=== PATIENT | female | born 1940 | race Caucasian/White ===

== ENCOUNTER → 2016-10-07 | Outpatient (CLI) | payer MEDICARE, OTHER ==
[~2016-10-07] MED LIST: AMARYL2 MG PO; ASPIRIN81 M2; ASPIRIN81 MG PO; CRESTOR; CRESTOR5 MG PO; HYZAAR PO; METFORMIN; METFORMIN HCL500 M1 PO; NORFLEX100 M1 PO; NORVASC; NORVASC10 MG PO
--- NOTE | ~2016-10-07 | XA30 ---
[facility] A Service of [facility] & [facility] RADIOLOGY TEXT RESULTS PATIENT: BREANA CHAMBERS LOCATION: [facility] : 39 UNIT #: [id number] AGE: [address]: Aldo Renee MD SEX: F ORDER DR: [id number] [facility] [address]. [place], [place] [address] [id number] O MR#: [id number] #: [id number] NAME: BREANA CHAMBERS. : 1940 SEX: F STUDY DATE/TIME: 10/07/2016 11:14 UNIT: [facility] ROOM: STUDY DESCRIPTION: XA Arthrocentesis Major Joint Attending Physician: Aldo Renee M.D. Ordering Physician: Aldo Renee M.D. Primary Care Physician: Demarcus Lara Jr., M.D. MEDICAL IMAGING REPORT This report is preliminary unless electronic signature is present EXAM Bilateral fluoroscopically guided hip joint injections with steroid and a local anesthetic INDICATIONS Bilateral hip pain. Fluoro time is 0.9 minutes. Reference air kerma 31 mGy. Risks, benefits and alternatives of the procedure discussed with the patient informed consent was obtained. In the procedure room a timeout was performed confirming correct patient and procedure. All elements of maximum sterile-barrier technique utilized according to guidelines appropriate for the procedure. TECHNIQUE/FINDINGS Skin overlying both hips was prepped and draped in the usual sterile fashion. 1% lidocaine utilized to anesthetize the skin and underlying subcutaneous tissues. Next under fluoroscopic guidance a 22 gauge needle was advanced into the left hip joint space. It was then injected with 2 mL of 40 mg/mL of Depo-Medrol followed by 3 mL of Bupivacaine. Needle was removed and a sterile dressing was applied. Next a 22-gauge needle was advanced into the right hip joint space under fluoroscopic guidance. This was then injected with 2 mL of 40 mg/mL Depo-Medrol followed by 3 mL of Bupivacaine. Needle was removed and a sterile dressing was applied. There were no immediate complications. Spot images were taken of both hips. Patient tolerated procedure well without immediate complication. Preprocedure pain for both hips was 10. Postprocedure pain for both hips was 4. IMPRESSION Technically successful bilateral hip injections with steroid and local anesthetic STS. [facility] A Service of [facility] RADIOLOGY TEXT RESULTS PATIENT: BREANA CHAMBERS LOCATION: [facility] : 39 UNIT #: [id number] AGE: [address]: Aldo Renee MD SEX: F ORDER DR: Dictated by... Erwin Purdy M.D. THIS IS AN ELECTRONICALLY VERIFIED REPORT Erwin Purdy M.D. at 10/08/2016 9:32 AM DEANNA/rakesh TD: 10/07/2016 17:23 JOB #: [id number] MEDICAL IMAGING REPORT Page 1 of 1 COPY
== END | disposition home or self-care (01) ==
LOC: CIVR 10:43
PROC: 3E0U33Z Introduction of Anti-inflammatory into Joints, Percutaneous Approach (ICD-10-PCS; principal; 2016-10-07)
PROC: 3E0U3BZ Introduction of Anesthetic Agent into Joints, Percutaneous Approach (ICD-10-PCS; 2016-10-07)
DX: M25.552 Pain in left hip (principal); M25.551 Pain in right hip
CPT/HCPCS: 77002; J1030; Q9966

== ENCOUNTER 2017-02-27 08:23 | Observation (INO) | payer MEDICARE, OTHER ==
[~2017-02-27] VITALS: Ht 162.6 cm; Wt 71.7 kg
--- NOTE | ~2017-02-27 | CO ---
Unit #: [id number] #: [id number] Patient: BREANA JORDAN [id number] [address] [place], [place] [address] [id number] I MR#: [id number] NAME: BREANA JORDAN. ROOM: 328 Age: 76 Sex: F Admission Date: 02/27/2017 : 1940 Attending Physician: Nabila Singh M.D. Primary Care Physician: Demarcus Lara Jr., M.D. CONSULTATION REPORT REASON FOR CONSULTATION Chest pain. HISTORY OF PRESENT ILLNESS The patient is a 76-year-old, female, with history of CAD, diabetes mellitus, hypertension, and hyperlipidemia, who presented to the emergency department initially with complaints of hives. These hives have been ongoing since and woke her at 02:00 a.m. with intense itching. She also during that time noticed some episodes of squeezing chest discomfort on the left side. She said this lasted for a few seconds and then resolved and then returned again, lasted for only a few seconds. She has not had any other problems with exertion-related chest pain prior to this episode. In the emergency room, the patient was treated with prednisone, Pepcid, and potassium. She was noted to have a potassium low at 3.0. The patient reports she has had a cardiac workup in the past including two heart catheterizations. She was unaware of any heart disease, but then later had access to her medical records and discovered that she did have a diagnosis of CAD. She has never been informed this by a physician. PAST MEDICAL HISTORY 1. History of CAD, details unknown. 2. Diabetes mellitus. 3. Hypertension. 4. Dyslipidemia. 5. Chronic pain. 6. Osteoarthritis. PAST SURGICAL HISTORY Appendectomy. HOME MEDICATIONS Norvasc 10 mg daily, Hyzaar daily, Crestor 5 mg daily, metformin 500 mg b.i.d., Amaryl 2 mg daily, aspirin 81 mg daily, and vitamin D3. ALLERGIES Penicillin, sulfa, erythromycin, and procaine. SOCIAL HISTORY She does not smoke and never smoked. She rarely drinks alcohol. She denies any illicit drug use. She lives at home alone. She is able to go to the grocery, but this is quite painful for her given her arthritis and also some complications following an injection. Unit #: [id number] #: [id number] Patient: BREANA JORDAN FAMILY HISTORY Father in his 40s of an DE. Brother at 46 of an DE. She has another brother, who is diabetic and has peripheral arterial disease and a sister, who has atrial fibrillation, history of CAD and stents, currently 91 and living. REVIEW OF SYSTEMS GENERAL: Denies recent fevers, chills, or myalgias. SKIN: She has had recent hives, which have improved with treatment in the ER. HEENT: Denies headaches, vision loss, hearing loss, epistaxis, or dysphagia. PULMONARY: Denies cough, hemoptysis, or wheezing. CARDIAC: Chest pain as discussed above. Denies palpitations, tachycardia, orthopnea, or PND. GASTROINTESTINAL: Denies nausea, vomiting, diarrhea, or melena. : Denies hematuria or dysuria. EXTREMITIES: Denies swelling or claudications. SPINE: Denies scoliosis. NEUROLOGIC: Denies dizziness or syncope. DIAGNOSTIC STUDIES LABORATORY RESULTS: Current labs and tests; PT 9.9 and INR is 0.9. Sodium 138, potassium 3.0, chloride 106, CO2 of 22, BUN 20, creatinine 0.7, and glucose 191. BNP of 30. Troponin was less than 0.05 at 09:40 a.m. White blood cell 11.6, hemoglobin 11.8, hematocrit 35.7, and platelets 220. CARDIOVASCULAR STUDIES: EKG shows normal sinus rhythm with nonspecific ST changes. PHYSICAL EXAMINATION VITAL SIGNS: Blood pressure is 114/58, heart rate 81 and regular, respirations 14, temperature 98.3, and O2 saturation 98% on room air. GENERAL: The patient is well-developed, well-nourished, elderly overweight female, in no acute distress. Awake, alert, and oriented x3. SKIN: Positive for hives. HEENT. Normocephalic and atraumatic. There are no xanthelasmas. Oral mucosa is pink and moist. NECK: No JVD or carotid bruits. SPINE: No kyphosis or scoliosis. CHEST: Clear to auscultation bilaterally. CORONARY: Regular rate and rhythm without murmur, gallop, rub, or lift. ABDOMEN: Soft, nontender, and nondistended. Positive bowel sounds x4. The abdominal pulsation is not enlarged. EXTREMITIES: No clubbing, cyanosis, or edema. NEUROLOGIC: Awake, alert, and oriented x3. ASSESSMENT AND PLAN 1. Chest pain, somewhat atypical. 2. History of coronary artery disease, details unknown. 3. Diabetes mellitus. 4. Hypertension. 5. Hyperlipidemia. 6. Chronic pain. 7. Hypokalemia. 8. Urticaria. Ms. Jordan's case was discussed with Dr. Rudy Benitez, who has also Unit #: [id number] #: [id number] Patient: BREANA JORDAN evaluated the patient. The patient will be admitted and we will follow serial troponins. She will have an echocardiogram and a Lexiscan Cardiolite in the morning. Dictated by... Matt Chicas CMG/latosha TD: 02/28/2017 04:41 JOB #: [id number] CONSULTATION REPORT Page 1 of 1 X X CONSULTATION REPORT
--- NOTE | ~2017-02-27 | HP ---
Unit #: [id number] #: [id number] Patient: BREANA CHAMBERS [id number] [address] [place], [place] [address] [id number] I MR#: [id number] NAME: BREANA CHAMBERS. ROOM: 05244 Age: 76 Sex: F Admission Date: 02/27/2017 : 1940 Attending Physician: Nabila Singh M.D. Primary Care Physician: Demarcus Lara Jr., M.D. HISTORY AND PHYSICAL CHIEF COMPLAINT Chief complaint is hives. HPI The patient is a 76-year-old female with past medical history of coronary artery disease, hypertension, hyperlipidemia, diabetes, chronic pain who presented to the emergency department for evaluation of the above. The patient states that she was in her usual state of health until February 24, 2017 when she developed hives. She states that she went to an [facility] and was prescribed Atarax, which made the rash worse. She started prednisone on the evening prior to admission. She denies any new medications. No abnormal foods. No change in detergents or soaps. She also developed chest pain today. She describes the pain as "squeezing." She felt "uncomfortable." She had associated shortness of breath. The chest pain is now gone. She states that she has dyspnea on exertion that has been going on for years. She denies any fever. No cough or cold symptoms. In the emergency department, chest x-ray showed nothing acute. EKG shows normal sinus rhythm with a rate of 91 beats per minute. Initial cardiac enzymes are negative. She was given 40 mg of prednisone and 20 mg of Pepcid in the emergency department, as well as 40 mEq of potassium. She is being admitted to [facility] for evaluation and further treatment. PAST MEDICAL HISTORY 1. Hypertension. 2. Hyperlipidemia. 3. Coronary artery disease. 4. Diabetes. 5. Chronic pain, in pain management. The patient refused to tell me who her pain management physician is. She states that she has had an unpleasant experience with the pain management group. It looks like she sees Dr. Renee, per record review. PAST SURGICAL HISTORY 1. Appendectomy. 2. Cardiac catheterization at [facility] in 2009 (no records). SOCIAL HISTORY The patient has a walker. She denies tobacco or alcohol use. ALLERGIES Unit #: [id number] #: [id number] Patient: BREANA CHAMBERS Penicillin, sulfa, procaine, IV dye. HOME MEDICATIONS 1. Norvasc 10 mg daily. 2. Hyzaar daily. 3. Crestor 5 mg daily. 4. Metformin 500 mg twice daily. 5. Amaryl 2 mg daily. 6. Aspirin 81 mg daily. REVIEW OF SYSTEMS A complete review of systems is negative except as indicated in the HPI. The patient states that she has lost about 15 pounds over the past 3 months. She denies any swelling in her legs. She states that she has dyspnea on exertion that has been going on for years. DIAGNOSTIC TESTS CARDIOVASCULAR: EKG shows normal sinus rhythm with a rate of 91 beats per minute. IMAGING: Chest x-ray shows nothing acute. LABORATORY: INR is 0.9. Comprehensive metabolic panel notable for potassium of 3, glucose is 191. BNP is 30. Troponin is less than 0.05. Complete blood count notable for white blood cell count of 11.6, hemoglobin is 11.8. PHYSICAL EXAM VITAL SIGNS: Temperature is 97.5, pulse 108, respirations 16, blood pressure 156/56, oxygen saturation 98% on room air. GENERAL: The patient is a female who is awake and alert, in no acute distress. HEENT: The head is atraumatic. Mucous membranes are moist. NECK: Supple. Trachea is midline. CARDIOVASCULAR: Regular rate and rhythm. RESPIRATORY: Lungs are clear to auscultation bilaterally with no increased work of breathing. ABDOMEN: Abdomen is soft, nontender with bowel sounds present in all 4 quadrants. EXTREMITIES: Extremities are nontender with no pedal edema. NEURO: The patient is awake and alert. She follows commands. PSYCH: Mood and affect are normal. The patient is cooperative. SKIN: Skin demonstrates scattered erythematous plaques involving the torso, upper and lower extremities, consistent with urticaria. ASSESSMENT The patient is a 76-year-old female with: 1. Urticaria. The patient is on Hyzaar. No medications are new. She was taking Atarax that actually made it worse. 2. Chest pain. The patient had a cardiac catheterization in 2009. Today, EKG shows normal sinus rhythm. Initial cardiac enzymes are negative. 3. History of coronary artery disease. 4. Hypokalemia with potassium of 3. The patient received 40 mEq of potassium in the emergency department. 5. Diabetes. 6. Hypertension. 7. Hyperlipidemia. 8. Chronic pain, followed by pain management. Unit #: [id number] #: [id number] Patient: BREANA CHAMBERS 9. Weight loss. PLAN 1. Admit for observation to intermediate level. 2. Normal saline at 75 mL an hour. 3. Healthy heart, consistent carb diet. 4. NPO after midnight for possible stress test. 5. Bedrest. 6. Fall precautions. 7. Serial cardiac enzymes. 8. Fasting lipid panel. 9. Consult Dr. Zheng regarding chest pain. 10. Check magnesium level. 11. Potassium-magnesium protocol. 12. TSH. 13. Pepcid, Solu-Medrol and Benadryl. 14. Hold Hyzaar. 15. Hemoglobin A1C. 16. Low-dose sliding scale insulin with Accu-Cheks. 17. Get cardiac catheterization report from [facility]. 18. Repeat labs in the morning, including magnesium. 19. SCDs for DVT prophylaxis. 20. Additional workup and consultants based on above. Dictated by Rich Urrutia/stella TD: 02/27/2017 14:15 JOB #: [id number] HISTORY AND PHYSICAL Page 1 of 1 X Nabila Singh MD X HISTORY AND PHYSICAL
--- NOTE | ~2017-02-27 | CR72 ---
[facility] A Service of [facility] & [facility] RADIOLOGY TEXT RESULTS PATIENT: BREANA CHAMBERS LOCATION: [facility] 328-01 : 39 UNIT #: [id number] AGE: [address]: Nabila Singh MD SEX: F ORDER DR: [id number] [facility] [address] [place], [place] [address] [id number] I MR#: [id number] Acc #: [id number] NAME: BREANA CHAMBERS. : 1940 SEX: F STUDY DATE/TIME: 02/27/2017 9:09 UNIT: [address] ROOM: [facility] STUDY DESCRIPTION: CR Chest Single View Portable Attending Physician: Nabila Singh M.D. Ordering Physician: Ed Alexi Shah M.D. Primary Care Physician: Demarcus Lara Jr., M.D. MEDICAL IMAGING REPORT This report is preliminary unless electronic signature is present EXAM portable chest. HISTORY Chest pain and shortness of breath over the past 5 days. TECHNIQUE A single view of the chest was obtained. COMPARISON Compared with 01/17/2016. FINDINGS The aorta is tortuous. This is unchanged. Heart size is normal. Both lungs are fully expanded and clear. Vascular markings are normal. IMPRESSION Tortuous aorta. No active disease. Dictated by... Juve Kaiser M.D. THIS IS AN ELECTRONICALLY VERIFIED REPORT Juve Kaiser M.D. at 03/01/2017 6:00 AM RLF/gz TD: 02/28/2017 07:05 JOB #: [id number] MEDICAL IMAGING REPORT Page 1 of 1 COPY
--- NOTE | ~2017-02-27 | EKG ---
PATIENT: BREANA CHAMBERS UNIT #: [id number] Ventricular Rate: 91 BPM Atrial Rate: 91 BPM P-R Interval: 156 ms QRS Duration: 96 ms Q-T Interval: 386 ms QTC Calculation(Bezet): 474 ms P [place]: 48 degrees Calculated R [place]: 29 degrees Calculated T [place]: 23 degrees Diagnosis Line: Normal sinus rhythm Diagnosis Line: ST and T wave abnormality, consider inferior Diagnosis Line: ischemia Diagnosis Line: Abnormal ECG Diagnosis Line: When compared with ECG of 23-JAN-2016 09:51, Diagnosis Line: No significant change was found Diagnosis Line: Confirmed by MARLENE DESAI MD ([id number]) on 02/27/2017 Diagnosis Line: 3:52:31 PM INTERPRETING MD: GISELLE SANABRIA
[~2017-02-27 08:23] MED LIST changes: -AMARYL2 MG PO; -ASPIRIN81 MG PO; -CRESTOR5 MG PO; -HYZAAR PO; -METFORMIN HCL500 M1 PO; -NORVASC10 MG PO
[2017-02-27 09:25] LABS: BASOPHIL% 0.2 % (0-2.5); EOSINOPHIL% 0.2 % (0.0-7.0); HEMATOCRIT 35.7 % (35.0-45.0); HEMOGLOBIN 11.8 gm/dL (12.0-16.0); LYMPHOCYTE% 8.3 % (17.0-45.0); MEAN CELL VOLUME 86.8 FL (83-96); MEAN CORPUSCULAR HEMOGLOBIN 28.7 PG (28-34); MEAN PLATELET VOLUME 8.4 FL (6.5-11.5); MONOCYTE# 0.5 X10e3 (0-1.0); MONOCYTE% 4.7 % (3.0-12.0); NEUTROPHIL% 86.6 % (40-75); PLATELET COUNT 220 X10e3 (140-420); RED BLOOD COUNT 4.12 X10e (3.90-5.30); RED CELL DISTRIBUTION WIDTH 14.7 % (11.0-15.5); WHITE BLOOD COUNT 11.6 X10e3 (4.0-10.5)
[2017-02-27 09:32] LABS: DIFF IND NO
[2017-02-27 09:42] LABS: POC - CKMB <1.0 ng/mL (0.0-7.9); POC - TROPONIN <0.05 ng/mL (<=0.05)
[2017-02-27 10:09] LABS: ALBUMIN SERUM 4.3 g/dL (3.5-5.0); BILIRUBIN,TOTAL 1.3 mg/dL (0.2-2.0); BUN/CREATININE RATIO 28.57; CALCIUM SERUM 9.3 mg/dL (8.4-10.2); CREATININE SERUM 0.7 mg/dL (0.6-1.4); GLOM FILT RATE Estimated 83.6 mL/min (>60); PROTEIN TOTAL SERUM 7.2 g/dL (6.0-8.3)
[2017-02-27 10:29] LABS: INR 0.9; PARTIAL THROMBOPLASTIN TIME 23.3 SECONDS (23.5-31.3); PROTHROMBIN TIME (PATIENT) 9.9 SECONDS (10.0-11.7)
[2017-02-27] MEDS ORDERED: NORVASC10 MG PO (12:49)
[2017-02-27] MEDS ORDERED: HYZAAR PO (12:50)
[2017-02-27] MEDS ORDERED: METFORMIN HCL500 M1 PO (12:50)
[2017-02-27] MEDS ORDERED: CRESTOR5 MG PO (12:50)
[2017-02-27] MEDS ORDERED: AMARYL2 MG PO (12:50)
[2017-02-27] MEDS ORDERED: ASPIRIN81 MG PO (12:51)
[2017-02-27 17:18] LABS: CK TOTAL 33 IU/L (26-140)
== END 2017-02-27 19:50 | disposition home or self-care (01) ==
LOC: CED 08:23 → CEDOF 13:20 → CED 13:43 → CEDOF 13:43 → C3A PCU 15:35 → CEDOF 15:35 → C3A PCU 15:35
PROVIDERS: Family Medicine; Physician Assistant
DX: L50.9 Urticaria, unspecified (principal); R07.9 Chest pain, unspecified; I25.10 Atherosclerotic heart disease of native coronary artery without angina pectoris; I10 Essential (primary) hypertension; E11.9 Type 2 diabetes mellitus without complications; E78.5 Hyperlipidemia, unspecified; G89.29 Other chronic pain; E87.6 Hypokalemia; R63.4 Abnormal weight loss; Z68.27 Body mass index [BMI] 27.0-27.9, adult; Z88.0 Allergy status to penicillin; Z88.2 Allergy status to sulfonamides; Z88.8 Allergy status to other drugs, medicaments and biological substances; Z91.041 Radiographic dye allergy status; Z79.82 Long term (current) use of aspirin; Z79.84 Long term (current) use of oral hypoglycemic drugs; Z79.899 Other long term (current) drug therapy; Z98.890 Other specified postprocedural states
CPT/HCPCS: 71010; 80053; 82550; 82553; 82947; 83735; 83880; 84443; 84484; 85025; 85610; 85730; 93005; 99284; G0378; J1815